=== PATIENT | female | born 1980 | race African-American/Black ===

== ENCOUNTER 2017-03-27 11:44 | Emergency (ER) | payer MEDICAID ==
[~2017-03-27] VITALS: Ht 154.9 cm; Wt 113.6 kg
[~2017-03-27 11:44] MED LIST: DILANTIN 100MG100 MG PO; FELDENE20 MG PO; FLEXERIL 1010 MG/TAB PO; FOLIC ACID 11 MG/TA1 PO; HCTZ 25MG TAB25 MG PO; INDERAL60 MG PO; KEPPRA 500MG500 MG PO; KEPPRA1000 MG PO; LEXAPRO 10MG10 MG PO; NORCO 325 MG-51 TAB PO; NORVASC 10MG10 MG PO; PHENYTEK200 MG PO; SENOKOTXTRA17.2 MG PO; VIMPAT100 MG PO; ZOFRAN ODT4 MG PO
[2017-03-27 11:54] VITALS: TEMP 98.9
[2017-03-27 12:54] LABS: BASO # 0.1 (0.0-0.2); BASO % 1.1 % (0.0-2.0); EOS # 0.2 (0.0-0.7); EOS % 3.1 % (0-4.0); GRAN # 2.8 (1.4-6.5); GRAN % 45.5 % (42.2-75.2); HEMATOCRIT 41.8 % (37.0-47.0); HEMOGLOBIN 14.5 g/dl (12.5-16.0); LYMPH # 2.6 (1.2-3.4); MEAN CELL VOLUME 92 fl (80.0-100.0); MEAN CORPUSCULAR HEMOGLOBIN 32 pg (27.0-31.0); MEAN CORPUSCULAR HGB CONC 35 g/dl (33.0-37.0); MONO # 0.6 (0.1-0.6); PLATELET COUNT 232 K/mm3 (130-400); RED BLOOD COUNT 4.55 M/mm3 (4.10-5.30); REDCELL DISTRIBUTION WIDTH-CV 13.7 % (11.5-14.5); WHITE BLOOD COUNT 6.2 K/mm3 (4.8-10.8)
[2017-03-27 12:58] LABS: PH 7 (5-8); SQUAMOUS EPITHELIAL 0-2 /hpf; URINE APPEARANCE Clear; URINE BACTERIA None Seen /hpf; URINE BILIRUBIN Negative (NEGATIVE); URINE BLOOD Negative (NEGATIVE); URINE COLOR Colorless; URINE GLUCOSE Negative (NEGATIVE); URINE KETONE Negative (NEGATIVE); URINE RBC 0-2 /hpf; URINE UROBILINOGEN Negative (NEGATIVE); URINE WBC 0-2 /hpf
[2017-03-27 13:10] LABS: ADJUSTED CALCIUM 9.9 mg/dL (8.4-10.2); ALBUMIN 3.9 gm/dL (3.5-5.0); BILIRUBIN,TOTAL 0.6 mg/dL (0.0-1.0); CALCIUM 9.8 mg/dL (8.4-10.2); CREATININE, serum 0.71 mg/dL (0.52-1.25); POTASSIUM 3.4 mmol/L (3.4-5.0); TOTAL PROTEIN 7.7 gm/dL (6.4-8.2)
[2017-03-27] MEDS ORDERED: DILANTIN 100MG100 MG PO ×2 (13:31)
[2017-03-27] MEDS ORDERED: VITAMIN D32000 IU PO (13:32)
[2017-03-27] MEDS ORDERED: DRISDOL50000 IU PO (13:33)
[2017-03-27] MEDS ORDERED: PRILOSEC 20MG20 MG PO (13:34)
[2017-03-27] MEDS ORDERED: MYRBETR25MG PO (13:34)
[2017-03-27] MEDS ORDERED: K-TAB10 PO (13:34)
[2017-03-27] MEDS ORDERED: TOPAMAX50 MG PO (13:35)
[2017-03-27 14:55] VITALS: BP 137/81; PULSE 78
== END 2017-03-27 14:56 | disposition home or self-care (01) ==
LOC: COL.ER 11:44
PROVIDERS: Nurse Practitioner
DX: G43.109 Migraine with aura, not intractable, without status migrainosus (principal); G40.909 Epilepsy, unspecified, not intractable, without status epilepticus; F17.210 Nicotine dependence, cigarettes, uncomplicated
CPT/HCPCS: J1200; J1885; J2550; J3360; J7030

== ENCOUNTER 2022-07-12 15:07 | Emergency (ER) | payer MEDICAID ==
[~2022-07-12] VITALS: Ht 152.4 cm; Wt 86.4 kg
[2022-07-12 15:07] VITALS: TEMP 98.1
[~2022-07-12 15:07] MED LIST changes: +DRISDOL50000 IU PO; +K-TAB10 PO; +MYRBETR25MG PO; +PRILOSEC 20MG20 MG PO; +TOPAMAX50 MG PO; +VITAMIN D32000 IU PO
[2022-07-12 15:36] LABS: BASO # 0.1 K/mm3 (0.0-0.2); BASO % 0.6 % (0.0-2.0); EOS % 0.1 % (0.0-4.0); GRAN # 5.7 K/mm3 (1.4-6.5); GRAN % 67.7 % (42.2-75.2); HEMATOCRIT 39.6 % (37.0-47.0); HEMOGLOBIN 13.2 g/dl (12.5-16.0); LYMPH # 1.5 K/mm3 (1.2-3.4); LYMPH % 17.5 % (20.0-51.0); MEAN CELL VOLUME 87 fl (80.0-100.0); MEAN CORPUSCULAR HEMOGLOBIN 29 pg (27-31); MEAN CORPUSCULAR HGB CONC 33 g/dl (33.0-37.0); MEAN PLATELET VOLUME 10.7 fl (7.4-10.4); MONO # 1.2 K/mm3 (0.1-0.6); MONO % 13.7 % (1.7-9.3); PLATELET COUNT 289 K/mm3 (130-400); RED BLOOD COUNT 4.54 M/mm3 (4.10-5.30); REDCELL DISTRIBUTION WIDTH-CV 14.8 % (11.5-14.5)
[2022-07-12 15:52] LABS: ALBUMIN 3.8 gm/dL (3.5-5.0); BILIRUBIN,TOTAL 0.4 mg/dL (0.2-1.2); CALCIUM 9.2 mg/dL (8.4-10.2); CREATININE, serum 0.91 mg/dL (0.57-1.11); POTASSIUM 3.3 mmol/L (3.5-4.5); TOTAL PROTEIN 7.5 gm/dL (6.2-8.1)
[2022-07-12 16:12] LABS: PROLACTIN 29.6 ng/mL (5.18-26.53)
[2022-07-12] MEDS ORDERED: ATIVAN 1MG T1 MG/TAB PO (16:51)
[2022-07-12 17:06] VITALS: BP 150/88; PULSE 85
== END 2022-07-12 17:15 | disposition home or self-care (01) ==
LOC: COL.ER 15:07
PROVIDERS: Emergency Medicine
DX: G40.909 Epilepsy, unspecified, not intractable, without status epilepticus (principal); Z79.899 Other long term (current) drug therapy
CPT/HCPCS: J7030

== ENCOUNTER 2023-02-03 13:30 | Inpatient (IN) | payer MEDICAID ==
[~2023-02-03] VITALS: Ht 149.9 cm; Wt 92.6 kg
[~2023-02-03 13:30] MED LIST changes: +ATIVAN 1MG T1 MG/TAB PO; +KLONOPIN 0.5MG0.5 MG PO
[2023-02-03] MEDS ORDERED: TYLENOL 325MG325 MG PO (14:36)
[2023-02-03] MEDS ORDERED: DECADRON 4MG TAB4 MG PO (14:37)
[2023-02-03] MEDS ORDERED: DULCOLAX STOOL100 MG PO (14:38)
[2023-02-03] MEDS ORDERED: HEPARIN SOD5000 U/ML IJ (14:39)
[2023-02-03] MEDS ORDERED: ROXICODONE 55 MG/TAB PO (14:40)
[2023-02-03] MEDS ORDERED: SENOKOT S 50 MG1 TAB PO (14:42)
[2023-02-03] MEDS ORDERED: BRIVIACT100 MG PO (14:42)
[2023-02-03] MEDS ORDERED: ZESTRIL 20MG TA20 MG PO (14:43)
[2023-02-03] MEDS ORDERED: MELATONIN PO (14:45)
[2023-02-03] MEDS ORDERED: TRILEPTAL 300M300 MG PO (14:46)
--- NOTE | 2023-02-03 15:18 | NUR ---
Pt arrived to unit via [facility] transportation van. Pt required CGA/SBA to transfer from wheelchair to bed. Pt responds appropriately to questions when asked, but has a delayed response. Skin is intact except for a surgical incision on the left scalp from her latter day to around the left ear. She is a/0 x 4, but drowsy. No edema. Pt denies any valuables. Orientation provided to room/unit but will need reteaching d/t fatigue. Bed alarm is on. Call light is in her reach.
[2023-02-03 15:48] VITALS: BP 150/86; PULSE 61; TEMP 98.2
[2023-02-03 18:33] VITALS: BP 139/73; PULSE 63; TEMP 98.4
--- NOTE | 2023-02-03 18:45 | NUR ---
RECEIVED CHANGE OF SHIFT REPORT FROM DAY SHIFT RN.
[2023-02-03 18:51] VITALS: BP 138/67; PULSE 68
--- NOTE | 2023-02-03 19:49 | NUR ---
SPOKE WITH PROVIDER, REGARDING PRN ANTIEMETIC, PROVIDER TO ENTER ORDER.
--- NOTE | 2023-02-03 21:00 | NUR ---
PATIENT PULLED OUT IV TO RFA DURING SELF PERICARE AFTER VOIDING. PATIENT UPSET AND VERBALLY WORRIED "I HOPE YOU CAN GET IT IN.... THEY HAD A HARD TIME GETTING IT IN EARLIER" REFERRING TO [facility] FOR SALINE LOCK.
--- NOTE | 2023-02-04 01:37 | NUR ---
PATIENT REPORTS L DRUZE AREA OF HEAD PAIN HAS SUBSIDED ENOUGH FOR HER TO REST. DENIES ANY ADDITIONAL NEEDS OR CONCERNS.
[2023-02-04 03:46] VITALS: BP 137/81; PULSE 64; TEMP 97.8
--- NOTE | 2023-02-04 06:55 | NUR ---
CHANGE OF SHIFT REPORT GIVEN TO DAY SHIFT RNEDGARD.
--- NOTE | 2023-02-04 07:07 | NUR ---
Shift report received from hourly shift manager RN.
--- NOTE | 2023-02-04 14:43 | NUR ---
Mortar Worker met with Patient at bedside to conduct Care Managment Assessment. Patient verrified that she lives in [place], [place] with her Mother P:[phone] and Son [phone]. Patient is established with PCP Dt. Jang and is covered by [email or web address] for insurance. Patient denies the use of O2, DME, and HH services prior to admission. SW will continue to follow.
[2023-02-04 17:48] VITALS: BP 150/80; PULSE 58; TEMP 98.2
--- NOTE | 2023-02-04 19:37 | NUR ---
RECEIVED CHANGE OF SHIFT REPORT FROM DAY SHIFT RN. PATIENT SLEEPING DURING REPORT, DOES NOT WAKE DURING REPORT WHEN STAFF ENTER ROOM. BREATHING NONLABORED AND EVEN. EXIT ALARM ON, CALL LIGHT IN REACH.
[2023-02-05 06:02] VITALS: BP 135/82; PULSE 65; TEMP 98.3
--- NOTE | 2023-02-05 07:20 | NUR ---
CHANGE OF SHIFT REPORT GIVEN TO DAY SHIFT CATHY MASCORRO
--- NOTE | 2023-02-05 08:00 | NUR ---
PATIENT IS ORIENTED BUT DROWSY THIS AM. PATIENT C/O DISCOMFORT IN LEFT HEAD INCISION, GAVE SCHEDULED TYLENOL WITH AM MEDS, WILL MONITOR. VSS. PATIENT HAS SLOW SPEECH AND USES SHORT SIMPLE PHRASES WHEN RESPONDING TO STAFF. LEFT HEAD INCISION IS U-SHAPED WITH CADENCE INTACT. NO C/O N/V. LEFT FORARM IV TO INT. TOOK PILLS WITHOUT DIFFICULTY. HEAD TO TOE ASSESSMENT COMPLETE. PT/OT/ST CONSULTED. NO OTHER NEEDS AT THIS TIME. PATIENT RESTING IN BED WITH LIGHTS OUT. CALL LIGHT IN REACH. BED ALARM ON.
--- NOTE | 2023-02-05 09:20 | NUR ---
PATIENT STILL C/O DISCOMFORT. GAVE PRN ROXICODONE, SEE MAR.
--- NOTE | 2023-02-05 16:06 | NUR ---
Play Therapist met with PAtient at bedside to review treatment team notes and discuss discharge planning. Play Therapist reviewed team notes with PAtient and informed her that it is reccomended for a family meeting. PAtient informed SW that her mother and son are the supports that she would like to attend. SW will continue to follow. Re-evaluation scheduled for seven days from this day.
[2023-02-05 17:53] VITALS: BP 137/79; PULSE 71; TEMP 98.6
--- NOTE | 2023-02-05 20:45 | NUR ---
PATIENT IS RESTING IN BED.PATIENT DENIES PAIN.PATIENT TAKES PILLS WHOLE WITH NO TROUBLE.PATIENT IS ALERT AND ORIENTED.PATIENT HAS SLOW RESPONSES WHEN SPEAKING.SAFETY MEASURES IN PLACE.NO OTHER NEEDS A THIS TIME.
--- NOTE | 2023-02-06 05:19 | NUR ---
PATIENT SLEPT THROUGH THE NIGHT.PATIENT DENIES PAIN.NO SEIZURE OBSERVED.SAFETY MEASURES IN PLACE.NO OTHER NEEDS AT THIS TIME.
[2023-02-06 05:52] VITALS: BP 131/83; PULSE 69; TEMP 97.8
--- NOTE | 2023-02-06 09:57 | NUR ---
Basket Machine Operator met with Patient's Son in person to coordinate a time for a Family Meeting to be scheduled on Friday02-12-23. Patient's son reported that he, and PAtient's mother would likely need to conduct the family meeting over the phone due to transportation issues. He agreed to discuss a time with his grandmother and follow-up with SW in the AM.
--- NOTE | 2023-02-06 14:51 | NUR ---
Has lack of transportation kept you from medical appts, meetings, work, or from getting things needed for daily living? NO How often do you feel lonely or isolated from those around you? NEVER Over the past 5 days, how much of the time has pain made it hard for you to sleep? OCCASIONALLY Over the past 5 days, how often have you limited your participation in therapy due to pain? OCCASIONALLY Over the past 5 days, how often have you limited your day-to-day activities because of pain? OCCASIONALLY Have you had 2 or more falls in the past year or any fall with an injury? YES Did you have major surgery during the 100 days prior to admission? YES
[2023-02-06 17:32] VITALS: BP 141/73; PULSE 62; TEMP 98.3
--- NOTE | 2023-02-06 17:47 | NUR ---
Shift summary [id number]: VSS, Ox4. Speech continues to be slow but clear and concise. Pt c/o of DAVID midday which pt denies getting benefit from tylenol. Is given Oxycodone per orders, which pt reports relieved pain completely. Sutures remain to L lateral head, SAMANTHA, no drainage. Is continent of both bladder and bowel today. BM x 2. Pt tearful multiple times during shift, is started on Lexapro. Ambulates well, SBA with walker and queing.
--- NOTE | 2023-02-06 21:00 | NUR ---
PT DROWSY BUT ORIENTED. HAS SLOW ROBOTIC SPEECH. NO DISTRESS. DENIES NEEDS. SEE COMPLETED ASSESSMENT. CALL LIGHT IN REACH. BED ALARM SET.
[2023-02-07 05:38] VITALS: BP 129/80; PULSE 71; TEMP 98.4
[2023-02-07 06:50] LABS: BASO % 0.2 % (0.0-2.0); EOS % 0.3 % (0.0-4.0); GRAN # 7.2 K/mm3 (1.4-6.5); HEMOGLOBIN 12.2 g/dl (12.5-16.0); LYMPH % 25.6 % (20.0-51.0); MEAN CELL VOLUME 90 fl (80.0-100.0); MEAN CORPUSCULAR HEMOGLOBIN 30 pg (27-31); MEAN CORPUSCULAR HGB CONC 33 g/dl (33.0-37.0); MONO # 1.3 K/mm3 (0.1-0.6); MONO % 11.1 % (1.7-9.3); PLATELET COUNT 388 K/mm3 (130-400); RED BLOOD COUNT 4.11 M/mm3 (4.10-5.30); REDCELL DISTRIBUTION WIDTH-CV 14.2 % (11.5-14.5)
[2023-02-07 06:53] LABS: HEMATOCRIT 36.8 % (37.0-47.0)
[2023-02-07 07:11] LABS: CALCIUM 8.6 mg/dL (8.4-10.2); CREATININE, serum 0.75 mg/dL (0.57-1.11); POTASSIUM 3.9 mmol/L (3.5-4.5)
--- NOTE | 2023-02-07 12:40 | NUR ---
Chemical Engineering Technician contacted Patient's son in order to schedule a treatment team meeting with the family. He reported that 1015 on 01-15-23 will work for him and Patient's mother, Marie to attend via phone.
[2023-02-07 17:20] VITALS: BP 114/61; PULSE 77; TEMP 98.5
--- NOTE | 2023-02-07 18:30 | NUR ---
Shift summary 629-present: VSS, afebrile, Ox4. Pt continues with slow, "robotic" speech. Participates with therapies, rests in bed between sessions. PRN Oxycodone x 1 for pain not relieved by scheduled APAP. Pt up to BR to pass hard stool, continues on bowel regimen. Ambulates without difficulty, needs queing for walker use. Fewer tearful breakdowns than prior day.
--- NOTE | 2023-02-07 21:00 | NUR ---
PT IN BED. SPEECH SLOW, CHOPPY. HS MEDS GIVEN. HAS INT TO LFA, FLUSHED AT THIS TIME. HAS SUTURES INTACT TO LT SCALP. PT DENIES PAIN, SCHEDULED ES TYLENOL GIVEN.
--- NOTE | 2023-02-08 04:09 | NUR ---
ASSISTED TO BATHROOM WITH WALKER AND ONE ASSIST, GAIT SLIGHTLY UNSTEADY. VOIDS AND BACK TO BED.
[2023-02-08 05:58] VITALS: BP 127/76; PULSE 70; TEMP 98.5
--- NOTE | 2023-02-08 06:55 | NUR ---
Shift report received from night RN. Pt sleeping supine in bed. Call light is in her reach. Bed alarm is on.
--- NOTE | 2023-02-08 08:34 | NUR ---
OT completed for the morning. Pt resting in recliner w/ BLE elevated on the footrest. Scheduled Tylenol given for pain. Pt has her call light in her reach. Denies other needs. Chair alarm is on.
--- NOTE | 2023-02-08 09:38 | NUR ---
Pt is off the unit for Group Therapy
[2023-02-08 16:53] VITALS: BP 102/56; PULSE 65; TEMP 98.6
--- NOTE | 2023-02-08 19:33 | NUR ---
MIN 1 ASSIST TO BR WITH WALKER. PT ABLE TO UP TO SIDE OF BED PER SELF. PT MOANING AND SWINKS EYES. PT RELATES LT SCALP PAIN WHEN FIRST SITS UP THEN IT DECREASES. SAME WITH STANDING. DENIES NEED FOR PAIN MED. PT ABLE TO MANAGE TOILETING TASKS PER SELF. BACK TO BED. ABLE TO LIFT FEET UP INTO BED. PT ASKS IF IT IS OK IF SHE LAYS DOWN. PT HAS ROBITIC SPEECH. ORIENTED. HAD VISITORS HERE EARLIER AND BROUGHT BASS AND BALLOONS. PT VERY HAPPY. WANTED TO HOLD ON TO A SPRIG OF FLOWER. CALL LIGHT IN REACH. BED ALARM SET.
[2023-02-09 06:26] VITALS: BP 115/69; PULSE 72; TEMP 97.8
--- NOTE | 2023-02-09 07:01 | NUR ---
Shift report received from k 12 school professional RN
--- NOTE | 2023-02-09 08:37 | NUR ---
Pt resting in recliner w/ BLE elevated on the footrest. Pt states "I don't know" when asked if she is having pain/discomfort. Lt. scalp incision is CDI w/ sutures. Pt ate 100% of her breakfast indepedently. Pt has her call light in her reach. Chair alarm is on.
--- NOTE | 2023-02-09 12:11 | NUR ---
Fulfillment Mail Clerk rounds: Patient was sitting up in the recliner, perhaps sleeping. Fulfillment Mail Clerk offered visit. Patient declined visit.
--- NOTE | 2023-02-09 12:31 | NUR ---
Pt ate 100% of lunch independently. SBA provided as pt stood from recliner and ambulated to bed w/ a FWW. She denied toileting needs. Pt supervised as she transferred into bed. She denies other needs. Call light is in her reach. Bed alarm is on.
[2023-02-09 16:49] VITALS: BP 131/73; PULSE 62; TEMP 98.2
--- NOTE | 2023-02-09 20:30 | NUR ---
PT RESTING IN BED. ORIENTED X4. EXPRESSIVE APHASIA- ROBOTIC SPEECH. ABLE TO MAKE NEEDS KNOWN. ASSISTED TO BR WITH WALKER. VOIDING W/O DIFFICULTY. DENIES PAIN. BUT GRIMACES AND MOANS WITH ACTIVITY. SCHEDULED TYLENOL GIVEN. CALL LIGHT IN REACH. BED ALARM SET.
[2023-02-10 05:23] VITALS: BP 123/76; PULSE 78; TEMP 98.1
[2023-02-10 17:52] VITALS: BP 154/80; PULSE 76; TEMP 98.1
[2023-02-11 05:12] VITALS: BP 124/79; PULSE 69; TEMP 98.6
--- NOTE | 2023-02-11 06:53 | NUR ---
Shift report received from [facility] hospital shift lead RN.
--- NOTE | 2023-02-11 08:26 | NUR ---
Pt supervised as she ambulated to the toilet w/ FWW. Pt is tearful and reports "I don't know what's wrong with my stomach". Pt noted to have a liquid stool. Pt reports this is the 2nd liquid stool this morning. When asked if having nausea pt began to cry. No vomiting so far. Zofran administered per PRN order. Will continue to monitor.
--- NOTE | 2023-02-11 10:15 | NUR ---
Pt is off the unit for Group Therapy.
--- NOTE | 2023-02-11 12:39 | NUR ---
Pt is sitting up in the recliner visiting with a friend from her methodist. She denies abd. pain or nausea. Denies general pain or discomfort. Denies any toileting needs at this time. She ate 100% of her lunch independently. Call light is in her reach. Chair alarm is on.
--- NOTE | 2023-02-11 13:04 | NUR ---
Pt scheduled for a post-op visit with Neurosurgery on 02/13. Left a voice mail to reschedule this appt and to inquire about a suture removal. Awaiting callback.
--- NOTE | 2023-02-11 13:57 | NUR ---
Callback received from Neurosurgery. Pt is scheduled for a telehealth on at 1430. If incision looks okay, the [facility] will send an order suture removal. Pt sitting up in the recliner to work w/ ST. She denies abd. pain, nausea, general pain. Scheduled Tylenol given. No further loose/liquid stools at this time. Will continue to monitor.
[2023-02-11 17:29] VITALS: BP 122/77; PULSE 73; TEMP 98.4
--- NOTE | 2023-02-11 20:18 | NUR ---
pt seemed to be sleeping upon entry, easily awake to take pm meds. assessment complete. incision is cdi. fall precautions in place. contact precautions implemented, pt denies diarrhea. no pain is present. pt denies nees at this time. call light within reach.
[2023-02-12 05:12] VITALS: BP 116/66; PULSE 67; TEMP 97.8
--- NOTE | 2023-02-12 06:57 | NUR ---
BEDSIDE REPORT DONE ORDER WIT NIGHT NURSE
--- NOTE | 2023-02-12 10:39 | NUR ---
ASSESSMENT DONE ORDER. PATIENT IS ALERT BUT VERY SLOW WITH TALKING. NO DISTRESS NOTED. PATIENT TALKING TO ME WITH SLOW SPEECH. PATIENT ABLE TO GET UP WITH WALKER AND USE THE TOLET WITH NO HELP.
--- NOTE | 2023-02-12 15:40 | NUR ---
Product Support Sales Representative attended family meeting which included patient's mother, Marie and son, Rajat by phone. Discharge date set for Friday and patient is pleased with this. Recommendation is for outpatient PT/OT/ST and patient/family are agreeable to have this set up at [facility] as this is where all three therapies are offered. Patient will also need a front wheeled walker. NIMA scheduled a follow up appointment at patient's PCP office, Aaron Corona. Dr. Jang not available until April so NIMA scheduled an appointment with ORALIA Palmer for Friday the at 1400. SW followed up with patient to provide team conference notes. Patient is agreeable to have walker ordered through [facility].
[2023-02-12 17:42] VITALS: BP 120/54; PULSE 52; TEMP 98.8
--- NOTE | 2023-02-12 18:50 | NUR ---
PT IN BR. CRYING. PT RELATES ITS HURTS TO HAVE BM. PT UNABLE TO SPECIFY WHERE PAIN IS. PT CRIED MORE WHEN STAFF ASSISTED WITH WIPING. BACK TO BED. EXAMINED RECTAL AREA. NO SKIN BREAKDOWN OR HEMORRHOIDS NOTED. APPLIED BARRIER OINTMENT. PT ALSO SAYS HER HEAD HURTS. SEE MAR FOR ROXICODONE GIVEN. PT REMAINS IN CONTACT ISOLATION AWAITING RESULTS OF GI PANEL. CALL LIGT IN REACH. BED ALARM SET.
--- NOTE | 2023-02-12 21:00 | NUR ---
PT RESTING NOW. PT REPORTS PAIN IS BETTER. PT HYPERSENSITIVE TO NOISE AND LIGHTS. SPEECH IS ROBOTIC. VERY NONSPECIFIC TO QUESTIONS. PT ASKS IF SHE CAN GO TO SLEEP NOW. CALL LIGHT IN REACH. BED ALARM SET. REMINDED PT TO USE CALL LIGHT FOR ASSIST BEFORE GETTING UP OUT OF BED. PT AGREED.
--- NOTE | 2023-02-13 02:39 | NUR ---
PT WAKES LONG ENOUGH TO TAKE TYLENOL. NO OTHER COMPLAINTS VERBALIZED.
[2023-02-13 05:35] VITALS: BP 108/69; PULSE 65; TEMP 98.7
--- NOTE | 2023-02-13 06:39 | NUR ---
BEDSIDE REPORT DONE ORDER WITH NIGHT NURSE NAYA
--- NOTE | 2023-02-13 10:16 | NUR ---
ASSESSMENT DONE ORDER. PATIENT IS ALERT AND ORIENT BUT SPEECH IS VERY SLOW. PATIENT ABLE TO STAND AND WALK WITH GAIT BELT.
--- NOTE | 2023-02-13 13:45 | NUR ---
Automatic Lathe Tender contacted [facility] and faxed referral. SW was advised they would call back today or tomorrow morning with scheduled appointments. SW contacted [facility] and faxed referral and order for walker. SW also contacted patient's mother, Marie to review Medicaid transportation. SW to schedule rides for upcoming appointments prior to DC.
[2023-02-13 16:39] VITALS: BP 109/67; PULSE 66; TEMP 98.6
--- NOTE | 2023-02-13 21:00 | NUR ---
PT DROWSY. SQINKS EYES. PT RELATES SHE DOESNT KNOW IF SHE IS IN PAIN. SCHEDULE TYLENOL GIVEN. TAKE ORAL MEDS WITHOUT DIFFICULTY. ASK IF SHE CAN GO TO SLEEP. CALL LIGHT IN REACH. BED ALARM SET.
[2023-02-13] MEDS ORDERED: LEXAPRO 10MG10 MG PO (21:40)
[2023-02-13] MEDS ORDERED: ROXICODONE 55 MG/TAB PO (21:42)
[2023-02-14 05:10] VITALS: BP 117/76; PULSE 71; TEMP 98.1
--- NOTE | 2023-02-14 06:45 | NUR ---
BEDSIDE REPORT DONE WITH NIGHT NURSE NAYA
--- NOTE | 2023-02-14 11:26 | NUR ---
Has lack of transportation kept you from medical appts, meetings, work, or from getting things needed for daily living? NO How often do you feel lonely or isolated from those around you? SOMETIMES Over the past 5 days, how much of the time has pain made it hard for you to sleep? OCCASIONALLY Over the past 5 days, how often have you limited your participation in therapy due to pain? RARELY/NOT AT ALL Over the past 5 days, how often have you limited your day-to-day activities because of pain? RARELY/NOT AT ALL
--- NOTE | 2023-02-14 11:33 | NUR ---
ASSESSMENT DONE ORDER. PATIENT ALERT AND ORIENTED BUT STILL HAVE SPEECH ISSUE. SPOKE WITH MOTHER REGARDING DISCHARGE. EXPLAIN ABOUT ALLL APPOINTMENTS. AND THAT WE WILL CALL WHEN SHE IS ON HER WAY. PATIENT ABLE TO GET UP WITH OUT ANY ISSUE. USE WALKER AT ALL TIME
--- NOTE | 2023-02-14 13:25 | NUR ---
Discharge QIM scores were reviewed by the team. Code of 6 chosen for toilet transfer was determined by team discussion to be the most usual performance for this patient during the discharge assessment period. Code of 6 chosen for putting on/taking off footwear was determined by team discussion to be the most usual performance for this patient during the discharge assessment period. Code of 6 chosen for sit to stand was determined by team discussion to be the most usual performance for this patient during the discharge assessment period. Code of 6 for car transfer was determined by team discussion to be the most usual performance for this patient during the discharge assessment period. Code of 4 chosen for walk 10 feet was determined by team discussion to be the most usual performance for this patient during the discharge assessment period. Code of 6 chosen for walk 50 feet w/ 2 turns was determined by team discussion to be the most usual performance before interventions for this patient during the discharge assessment period. Code of 6 chosen for walk 150 feet was determined by team discussion to be the most usual performance for this patient during the discharge assessment period. Code of 6 chosen for walk 10 feet on uneven surface was determined by team discussion to be the most usual performance for this patient during the discharge assessment period. Code of 6 chosen for 12 steps was determined by team discussion to be the most usual performance for this patient during the discharge assessment period. Code of 6 chosen for orange picker machine operator objects was determined by team discussion to be the most usual performance for this patient during the discharge assessment period.--PD Cindy
--- NOTE | 2023-02-14 15:26 | NUR ---
instruct patient on discharge appointment. called patient mother and inform of appointment. went over all instructions and education on medication.
--- NOTE | 2023-02-14 15:27 | NUR ---
Aging Room Hand scheduled outpatient therapy appointments for patient. NIMA provided appointments to patient's RN. NIMA scheduled Medicaid transportation for all scheduled follow up appointments and provided trip information, in writing, to patient in her discharge folder. NIMA contacted patient's mother, Marie to review transportation information. Either patient's mother, Marie or sonRajat plan to attend appointments with patient. NIMA confirmed patient's walker was delivered. NIMA scheduled transport home for patient using her Medicaid benefit.
== END 2023-02-14 15:28 | disposition home or self-care (01) | DRG 100 ==
PROVIDERS: ADMIT Physical Medicine & Rehabilitation Sports Medicine
DX: G40.802 Other epilepsy, not intractable, without status epilepticus (principal); G93.6 Cerebral edema; R47.01 Aphasia; Z48.811 Encounter for surgical aftercare following surgery on the nervous system; G89.18 Other acute postprocedural pain; I10 Essential (primary) hypertension; D64.89 Other specified anemias; R19.7 Diarrhea, unspecified; Z74.09 Other reduced mobility; R26.89 Other abnormalities of gait and mobility; R41.89 Other symptoms and signs involving cognitive functions and awareness; D72.828 Other elevated white blood cell count; G47.00 Insomnia, unspecified; F32.A Depression, unspecified; F41.9 Anxiety disorder, unspecified; H50.111 Monocular exotropia, right eye; Z79.899 Other long term (current) drug therapy
CPT/HCPCS: A9284; J1644; J8540

== ENCOUNTER → 2023-02-21 | Outpatient (RCR) | payer MEDICAID ==
[~2023-02-21] MED LIST changes: +BRIVIACT100 MG PO; +DECADRON 4MG TAB4 MG PO; +DULCOLAX STOOL100 MG PO; +HEPARIN SOD5000 U/ML IJ; +MELATONIN PO; +ROXICODONE 55 MG/TAB PO; +SENOKOT S 50 MG1 TAB PO; +TRILEPTAL 300M300 MG PO; +TYLENOL 325MG325 MG PO; +ZESTRIL 20MG TA20 MG PO
== END | disposition home or self-care (01) ==
LOC: MKS.ESL.PT → WSST 02-19 08:29 → MKS.ESL.PT 13:00
DX: G40.909 Epilepsy, unspecified, not intractable, without status epilepticus (principal); Z98.890 Other specified postprocedural states

== ENCOUNTER 2023-03-21 13:00 | Outpatient (RCR) | payer MEDICAID | END 2023-03-23 | disposition home or self-care (01) | LOC: MKS.ESL.PT | DX: Z90.89 Acquired absence of other organs (principal) ==

== ENCOUNTER 2023-04-22 10:30 | Outpatient (RCR) | payer MEDICAID | END 2023-04-23 | disposition home or self-care (01) | LOC: WSST | DX: R47.01 Aphasia (principal); G40.909 Epilepsy, unspecified, not intractable, without status epilepticus; Z98.890 Other specified postprocedural states ==

== ENCOUNTER 2023-09-22 10:30 | Outpatient (RCR) | payer MEDICAID | END 2023-09-23 | disposition home or self-care (01) | LOC: WSST | DX: R47.01 Aphasia (principal); G40.909 Epilepsy, unspecified, not intractable, without status epilepticus ==